=== PATIENT | male | born 1985 | race Caucasian/White ===

== ENCOUNTER → 2018-02-04 13:12 | Outpatient (CLI) | payer OTHER | END | disposition home or self-care (01) | LOC: D.MRI 02-01 13:00 | DX: M25.511 Pain in right shoulder (principal) ==

== ENCOUNTER 2018-07-11 08:00 | Day surgery (SDC) | payer OTHER ==
[~2018-07-11] VITALS: Ht 175.3 cm; Wt 120.9 kg
--- NOTE | ~2018-07-11 | OP ---
PATIENT NAME: SIRENA FRIEDMAN MEDICAL RECORD: [id number] [facility] DATE: SURGEON: ANIKA HOLMAN MD DATE OF OPERATION: 07/11/2018 PREOPERATIVE DIAGNOSIS: Painful osteophytes of the right shoulder with early osteoarthritis of the right shoulder. POSTOPERATIVE DIAGNOSIS: Painful osteophytes of the right shoulder with early osteoarthritis of the right shoulder. PROCEDURES: 1. Arthroscopic debridement of the osteoarthritic right shoulder. 2. Removal of large inferior osteophytes of the right humeral head done arthroscopically. SURGEON: Anika Holman MD ANESTHESIA: General. INTRAOPERATIVE COMPLICATIONS: None. 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 More overtly, the patient had a very large inferior pannus like osteophyte that was seen on the MRI. This was removed under direct arthroscopic visualization using a combination of resectors and burs. OPERATIVE SUMMARY IN DETAIL: After obtaining the appropriate preoperative orthopedic surgery consent as well as anesthetic consultation, evaluation and clearance, the patient was brought to the operating room and placed on the operating table in supine position. After general laryngeal mask airway was administered, the patient was placed in left lateral decubitus position. All pressure points were well padded to include down leg peroneal pad as well as axillary roll. The patient was held firmly to the operating table using the vacuum pack suction system. Right upper extremity and shoulder were then prepped and draped in routine sterile fashion. The arm was held in the Arthrex traction boom at 30 degrees of forward flexion, 30 degrees of abduction with 15 pounds of traction laterally. Arthroscopy was established in the glenohumeral joint from a posterior portal. Diagnostic arthroscopy showed the patient to have the above-mentioned findings without rotator cuff tearing. There were some attritional changes on the articular aspect; however, no full thickness tearing and good greater and lesser tuberosity adherence was noted. A second small posterior portal was created, through which the arthroscopic shaver was deployed for direct access to the posterior and inferior osteophytes. A combination of both the 5.0 resector as well as 5-0 barrel bur was utilized to completely debride all the osteophytes of the inferior humeral region very gently and all the way to the anterior inferior aspect of the shoulder. Mild labral tearing was also debrided along with a slight chondroplasty of the glenohumeral joint. Looking down the anterior gutter, no further osteophytes were noted. Having completed this, arthroscopy portals were closed in routine interrupted fashion using 4-0 Prolene. Sterile dressings were applied. The patient was awakened and taken to the recovery room in stable condition. All final needle and sponge counts were correct. OPERATIVE REPORT [id number] SIRENA FRIEDMAN TRANSINT:[id number] Voice Confirmation ID: [id number] DOCUMENT ID: [id number] MANDA AARON, ANIKA NEWTON at 1130 CC: [id number] DICTATION DATE: 07/11/18 1539 WELLNESS MANAGER: 07/12/18 0020 [facility] 07/11/18 [id number] [place] [id number]
[~2018-07-11 08:00] MED LIST: ADDERALL XR 2020 MG PO; AMBIEN10 MG PO
[2018-07-11 08:59] VITALS: BP 143/82; Ht 175.3 cm; Wt 120.9 kg
[2018-07-11] MEDS ORDERED: NORCO 10-325 TA1 TAB PO (11:57)
[2018-07-11] MEDS ORDERED: ZOFRAN ODT4 MG/UDTAB PO (11:58)
== END 2018-07-11 13:19 | disposition home or self-care (01) ==
LOC: D.OPS 08:00 → D.PAN 10:00 → D.OPS 10:00 → D.PAN 11:15 → D.OPS 11:15 → D.PAN 11:55 → D.OPS 13:19
DX: M25.711 Osteophyte, right shoulder (principal); M19.011 Primary osteoarthritis, right shoulder; Z01.812 Encounter for preprocedural laboratory examination